=== PATIENT | male | born 1990 | race Caucasian/White ===

== ENCOUNTER → 2018-07-17 | Outpatient (CLI) | payer OTHER ==
[~2018-07-17] MED LIST: HOLD METFORMIN - RECEIVED CONTRAST 20 ML VIAL IV SCH; IOHEXOL 350 MG/ML 100 ML (OMNIPAQUE 350) VIAL IV ONE; NS 100 ML (IVPB) BAG IV ONE
--- NOTE | 2018-07-17 18:42 | Diagnostic Imaging Report ---
PROCEDURE: CT neck soft tissue with contrast. TECHNIQUE: Multiple contiguous axial images were obtained through the neck after the administration of contrast. Auto Exposure Controls were utilized during the CT exam to meet ALARA standards for radiation dose reduction. INDICATION: Left-sided neck pain, difficulty swallowing, pain at the posterior tongue. The nasopharynx, oropharynx, and hypopharynx are unremarkable. The larynx and pharyngeal trachea are patent and unremarkable. No cervical lymphadenopathy. The parotid and submandibular glands as well as the thyroid are unremarkable. The prevertebral and retropharyngeal spaces are unremarkable. No mass or mass effect at the level of the tongue base. Sublingual space appeared unremarkable. IMPRESSION: Unremarkable soft tissue neck CT. Dictated by: Dictated on workstation # [id number]
== END ==
LOC: RAD 17:29
PROVIDERS: ATTEND Otolaryngology Otolaryngology/Facial Plastic Surgery
DX: M54.2 Cervicalgia (principal); R13.10 Dysphagia, unspecified
CPT/HCPCS: 70491

== ENCOUNTER 2019-09-10 10:21 | Observation (INO) | payer OTHER ==
[2019-09-10 13:30] VITALS: BP 143/70
[2019-09-10] MEDS ORDERED: PATIENT MAY USE OWN MEDS, ALL PO SCH (14:30)
[2019-09-10] MEDS ORDERED: ANTACID SUSP 30 ML UDC (MYLANTA) PO PRN (14:30)
[2019-09-10] MEDS ORDERED: ONDANSETRON 4 MG/2 ML (SDV) Z0FRAN IV PRN (14:30)
[2019-09-10] MEDS ORDERED: diphenhydrAMINE 25 MG TAB (BENADRYL) PO PRN (14:30)
[2019-09-10] MEDS ORDERED: polyethylene glycoL POWDER 17 GM (MIRALAX) PACK PO PRN (14:30)
[2019-09-10] MEDS ORDERED: ONDANSETRON 4 MG (ZOFRAN) ORAL DISSOLVE TAB PO PRN (14:30)
[2019-09-10] MEDS ORDERED: BISACODYL 10 MG SUPP (DULCOLAX) PR PRN (14:30)
[2019-09-10] MEDS ORDERED: MELATONIN 3 MG TABLET PO PRN (14:30)
--- OUTSIDE RECORDS SUMMARY | 2019-09-10 14:36 | XMS REPORT ---
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 Plan of Treatment Not available. Medications Active Name Start Date Estimated Completion Date SIG Co mments Levaquin 500 mg oral tablet 09/06/2019 09/16/2019 take 1 tablet (500 mg) by oral route once daily for 10 days Problem List Not available. Vital Signs Date Time BP-Sys(mm[Hg] BP-Patricia(mm[Hg]) HR(bpm) RR(rpm) Temp WT HT HC BMI BSA BMI Percentile O2 Sat(%) 09/06/2019 12:26:00 PM 130 mm[Hg] 80 mm[Hg] 62 {beats}/min 17 rpm 98.8 F 152.25 lbs 69 in 22.4832 kg/m2 1.8336 m2 99 % Social History Name Description Comments Chewing Tobacco History of Procedures Not available. Results Summary Not available. History Of Immunizations Not available. History of Past Illness Name Date of Onset Comments Epididymitis Sep 06 2019 12:31PM Left testicular pain Sep 06 2019 12:31PM Payers Insurance Name Company Name Plan Name Plan Number Policy Number Michael cy Group Number Start Date Cigna Cigna [id number] N/A History of Encounters Visit Date Visit Type Provider 09/06/2019 Office visit Shannen ARRIOLA RN
--- OUTSIDE RECORDS SUMMARY | 2019-09-10 14:37 | XMS REPORT | Continuity of Care Document ---
Author Organization Unknown Address Unknown Phone Unavailable Allergies Active Description Code Type Severity Reaction Onset Reported/Identified Relationship to Patient Clinical Status Yes No Allergy Information Available [id number] Drug Allergy Unknown N/A 019 Medications There is no data. Problems Date Dx Coded Attending Type Code Diagnosis Diagnosed By 07/29/2018 ZACK HERNÁNDEZ, MERCED Acosta Ot M54 .2 CERVICALGIA 07/29/2018 MERCED DIXON MD Ot R13.10 DYSPHAGIA, UNSPECIFIED Procedures There is no data. Results Test Result Range Fecal Leukocyte - 10/23/18 15:48 Fecal Leukocyte Negative Negative C. difficile Specimen Status Comment - 0 10/23/18 15:48 C. difficile Specimen Status Comment Specime n is not acceptable for testing. Stool must be either liquid or semi-solid for testing to be performed. Stool Culture - 10/23/18 15:48 CAMPYLOBACTER CULTURE FINAL REPORT E COLI SHIGA TOXIN EIA NEGATIVE NEGATIV E RESULT 1 NO SALMONELLA OR SHIGELLA RECOVERED. Salmonella/Shigella Screen FINAL REPORT Result 1 NO CAMPYLOBACTER SPECIES ISOLATED. COVID19 - 07/02/19 14:39 COVID19 NEGATIVE test performed at [facility] Chlamydia/GC Amplification - 09/06/19 14 :49 Chlamydia trachomatis, JEFF Negative Neg ative Neisseria gonorrhoeae, JEFF Negative Neg ative Urinalysis - 09/06/19 14:49 Icotest N/A Negative Urine Volume Urine Volume Sufficient (10mL) Urine-Appearance Clear Clear Urine-Bilirubin Negative Negative Urine-Blood Negative Negative Urine-Color Yellow Colorless-Lt. [place] ow Urine-Glucose Negative Negative Urine-Ketones Negative Negative Urine-Leukocytes Negative Negative Urine-Nitrite Negative Negative Urine-pH 7.0 5-8.5 Urine-Protein Negative Negative Urine-Specific [place] 1.025 1.000-1 .030 Urine-WBC Nothing Seen on Microscopic Urobilinogen 0.2 E.U./dL 0.2-1.0 Encounters ACCT No. Visit Date/Time Discharge Status Pt. Type Provider Facility Loc./Unit Complaint [id number] 09/06/2019 12:54:42 09/06/2019 23:59: 59 CLS Outpatient Shannen Spann [id number] 07/17/2018 17:29:00 019 23:59:59 CLS Outpatient ZACK HERNÁNDEZ, MERCED Acosta [facility] RAD LEFT POSTERIOR TONGUE P AIN/NECK [id number] 09/10/2019 13:25:[address] Inpatient DEMETRIO HERNÁNDEZ, KAMALA Simms [facility] CSD CARDIAC MONITORING [id number] 09/09/2019 21:07:00 Document Registration [id number] 09/06/2019 14:43:00 09/06/2019 23:59 :00 DIS Outpatient Corky Grant [id number] 09/06/2019 14:20:00 09/06/2019 23:59 :00 DIS Outpatient Corky Grant [id number] 07/02/2019 14:20:00 07/02/2019 23:59 :00 DIS Outpatient Isael Bower [id number] 05/14/2019 00:00:00 05/14/2019 23:59 :00 DIS Outpatient PILO SIMMONS [id number] 05/13/2019 10:01:00 05/13/2019 23:59 :00 DIS Outpatient PILO SIMMONS [id number] 05/12/2019 12:10:00 05/12/2019 23:59 :00 DIS Outpatient Isael oBwer [id number] 10/25/2018 15:15:00 10/25/2018 23:59: 00 DIS Outpatient Isael Bower [id number] 10/23/2018 15:45:00 10/23/2018 23:59: 00 DIS Outpatient Isael Bower [id number] 10/23/2018 15:07:00 10/23/2018 23:59: 00 DIS Outpatient Isael Bower [id number] 12/09/2017 16:24:00 12/09/2017 23:59: 00 DIS Outpatient Corky Grant
[2019-09-10] MEDS ORDERED: ACETAMINOPHEN 325 MG TABLET ONE (14:53)
[2019-09-10] MEDS: ACETAMINOPHEN 325 MG TABLET PO PRN ×2 (14:59→21:44)
[2019-09-10 15:00] VITALS: BP 134/66
[2019-09-10 15:59] VITALS: BP 118/63
[2019-09-10] MEDS: NS IV 1000 ML 1,000 ML IV SCH (17:13)
--- NOTE | 2019-09-10 19:35 | History & Physical-Hospitalist ---
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 He reports that he was working outside on a bucket truck with exposed wires when he accidentally came into contact with a live wire. The point of contact was his left arm and the exit point was his left leg. He reports some muscle aches when he moves, but otherwise no pain. He reports a headache. He denies chest pain and palpitations. He denies fevers, chills, dyspnea, abdominal pain, nausea, and vomiting. He has no other complaints or concerns. Source: patient Exam Limitations: no limitations Date Seen 09/10/19 Time Seen by a Provider: 16:10 Attending Physician Kamala Atkinson MD PCP No,Local Physician Referring Physician Date of Admission Sep 10, 2019 at 13:25 Home Medications & Allergies Home Medications Reviewed patient Home Medication Reconciliation performed by pharmacy medication reconciliations air analysis engineering technician and/or nursing. Patients Allergies have been reviewed. Allergies Allergies Coded Allergies Penicillins (Verified Allergy, Unknown, 09/10/19) Past Ianqfja-Ycwipd-Aozhcv Hx Past Med/Social Hx: Reviewed Nursing Past Med/Soc Hx Review of Systems Constitutional: no symptoms reported EENTM: no symptoms reported Respiratory: no symptoms reported Cardiovascular: no symptoms reported Gastrointestinal: no symptoms reported Genitourinary: no symptoms reported Musculoskeletal: muscle pain Skin: no symptoms reported Psychiatric/Neurological: No Symptoms Reported Physical Exam Physical Exam Vital Signs Vital Signs - First Documented 09/10/19 13:30 Temp 37.2 Pulse 63 Resp 18 B/P (MAP) 143/70 (94) Pulse Ox 99 O2 Delivery Room Air Capillary Refill : Height, Weight, BMI Height: '" Weight: lbs. oz. kg; BMI Method: General Appearance: No Apparent Distress, WD/WN HEENT: PERRL/EOMI, Pharynx Normal Neck: Normal Inspection, Supple Respiratory: Lungs Clear, Normal Breath Sounds, No Respiratory Distress Cardiovascular: Regular Rate, Rhythm, No Edema, No Murmur Gastrointestinal: Normal Bowel Sounds, Non Tender, Soft Extremity: Normal Inspection, Non Tender, No Pedal Edema Neurologic/Psychiatric: Alert, Oriented x3, No Motor/Sensory Deficits, Depressed Affect Skin: Normal Color, Warm/Dry, Other (small wound lateral left leg) Results Results/Procedures Labs Patient resulted labs reviewed. Assessment/Plan Admission Diagnosis Electrocution Admission Status: Observation Assessment and Plan Electrocution -Initial EKG normal -Labs normal -Monitor on telemetry -Repeat LFTs and CK tomorrow morning -IV fluids DVT prophylaxis: ambulation Diagnosis/Problems Diagnosis/Problems (1) Electrocution Status: Acute Clinical Quality Measures DVT/VTE Risk/Contraindication: RFS Level Per Nursing on Admit: 1=Low/No VTE PPX KAMALA ATKINSON MD Sep 10, 2019 19:35
[2019-09-10 19:38] VITALS: BP 121/84
[2019-09-11] VITALS: BP 119/70
[2019-09-11] MEDS: NS IV 1000 ML 1,000 ML IV SCH ×2 (02:39→06:37)
[2019-09-11 04:00] VITALS: BP 122/70
--- NOTE | 2019-09-11 04:00 | NUR ---
DISCUSSED PATIENT'S HEART RATE WITH HIM. NOTED THAT DURING SLEEP IT DROPS INTO THE 40'S. PATIENT STATED THAT IT IS TYPICAL FOR HIM TO DROP DURING REST INTO THE 40'S AND THAT HE HAS "HAD A LOWER HEART RATE SINCE HE'S BEEN RUNNING MORE LATELY". PATIENT DENIES DIZZINESS, FEELING LIKE HE IS GOING TO FAINT, OR ANY OTHER SYMPTOMS AT THIS TIME. WHEN PATIENT IS AWAKE HEART RATE QUICKLY INCREASES TO MID-UPPER 50'S. WILL CONTINUE TO MONITOR.
[2019-09-11 04:06] LABS: BASOPHILS % (AUTO) 1 % (0-10); EOSINOPHILS # (AUTO) 0.2 10^3/uL (0.0-0.3); EOSINOPHILS % (AUTO) 4 % (0-10); HEMATOCRIT 39 % (40-54); HEMOGLOBIN 13.2 G/DL (13.3-17.7); LYMPHOCYTES # (AUTO) 2.3 X 10^3 (1.0-4.0); LYMPHOCYTES % (AUTO) 35 % (12-44); MEAN CORPUSCULAR HEMOGLOBIN 30 PG (25-34); MEAN CORPUSCULAR HGB CONC 34 G/DL (32-36); MEAN CORPUSCULAR VOLUME 89 FL (80-99); MONOCYTES # (AUTO) 0.5 X 10^3 (0.0-1.0); MONOCYTES % (AUTO) 7 % (0-12); NEUTROPHILS # (AUTO) 3.6 X 10^3 (1.8-7.8); NEUTROPHILS % (AUTO) 54 % (42-75); PLATELET COUNT 208 10^3/uL (130-400); RED CELL DISTRIBUTION WIDTH 12.4 % (10.0-14.5); WHITE BLOOD COUNT 6.7 10^3/uL (4.3-11.0)
[2019-09-11 04:29] LABS: ALANINE AMINOTRANSFERASE 19 U/L (0-55); ALBUMIN 3.9 GM/DL (3.2-4.5); ALKALINE PHOSPHATASE 37 U/L (40-136); BILIRUBIN,TOTAL 0.5 MG/DL (0.1-1.0); BUN/CREATININE RATIO 17; CALCIUM 8.8 MG/DL (8.5-10.1); CARBON DIOXIDE 22 MMOL/L (21-32); CHLORIDE 110 MMOL/L (98-107); CREATINE KINASE 130 U/L (30-200); CREATININE SERUM 0.81 MG/DL (0.60-1.30); GFR ESTIMATED > 60; GLUCOSE 99 MG/DL (70-105); POTASSIUM 4.2 MMOL/L (3.6-5.0); SODIUM 141 MMOL/L (135-145); TOTAL PROTEIN 5.8 GM/DL (6.4-8.2)
[2019-09-11 07:39] VITALS: BP 142/87
[2019-09-11] MEDS ORDERED: LEVO500T80 PO (10:45)
[2019-09-11] MEDS ORDERED: ALPR0.25 PO (10:53)
--- NOTE | 2019-09-11 10:53 | NUR ---
SPOKE WITH THE PT AND WENT THRU THE EXT MED HISTORY TO COMPLETE THE MED REC PT SAYS THE ONLY THING HE IS TAKING IS LEVAQUIN AND DENIES ANY OTC MEDS I UPDATED THE PATIENTS PREFERRED PHARMACY TO [facility] IN [place] DUE TO THE PT WANTING TO USE THE DRIVE THRU ON THE WAY OUT OF [facility]
[2019-09-11 11:41] VITALS: BP 142/87
--- NOTE | 2019-09-11 11:43 | NUR ---
PT EDUCATED ON DISCHARGE INSTRUCTIONS AND MEDICATIONS. PT STATED UNDERSTANDING.
--- NOTE | 2019-09-11 13:23 | Discharge Summary ---
Discharge Summary Hospital Course Was the Problem List Reviewed?: Yes Problems/Dx: (1) Electrocution Status: Acute Hospital Course Date of Admission: Sep 10, 2019 at 13:25 Admission Diagnosis : electrocution Family Physician/Provider: No,Local Physician Date of Discharge: 09/11/19 Discharge Diagnosis: electrocution Hospital Course: Dipak Hill is a 28-year-old male who presented after being electrocuted. 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 His initial lab workup was normal. His EKG was also unremarkable. He was monitored on telemetry and had no arrhythmias. His repeat lab work remained normal. He was discharged in stable condition. He should follow-up with his primary care physician in a week or two. Labs and Pending Lab Test: Laboratory Tests 09/11/19 03:55: White Blood Count 6.7, Red Blood Count 4.43, Hemoglobin 13.2L, Hematocrit 39L, Mean Corpuscular Volume 89, Mean Corpuscular Hemoglobin 30, Mean Corpuscular Hemoglobin Concent 34, Red Cell Distribution Width 12.4, Platelet Count 208, Mean Platelet Volume 10.0, Neutrophils (%) (Auto) 54, Lymphocytes (%) (Auto) 35, Monocytes (%) (Auto) 7, Eosinophils (%) (Auto) 4, Basophils (%) (Auto) 1, Neutrophils # (Auto) 3.6, Lymphocytes # (Auto) 2.3, Monocytes # (Auto) 0.5, Eosinophils # (Auto) 0.2, Basophils # (Auto) 0.0, Sodium Level 141, Potassium Level 4.2, Chloride Level 110H, Carbon Dioxide Level 22, Anion Gap 9, Blood Urea Nitrogen 14, Creatinine 0.81, Estimat Glomerular Filtration Rate > 60, BUN/Creatinine Ratio 17, Glucose Level 99, Calcium Level 8.8, Corrected Calcium 8.9, Total Bilirubin 0.5, Aspartate Amino Transf (AST/SGOT) 21, Alanine Aminotransferase (ALT/SGPT) 19, Alkaline Phosphatase 37L, Total Creatine Kinase 130, Total Protein 5.8L, Albumin 3.9 Home Meds Active Xanax (Alprazolam) 0.25 Mg Tablet 0.25 Mg PO TID PRN 7 Days Assessment/Pt Instructions Follow up with your PCP. Return with worsening pain or palpitations. Discharge Planning: <30 minutes discharge planning Discharge Instructions Discharge Diet: No Restrictions Activity as Tolerated: Yes Discharge Physical Examination Vital Signs Vital Signs Date Time Temp Pulse Resp B/P (MAP) Pulse Ox O2 Delivery O2 Flow Rate FiO2 09/11/19 11:41 36.4 54 17 142/87 99 Room Air General Appearance: No Apparent Distress, WD/WN HEENT: PERRL/EOMI, Pharynx Normal Respiratory: Lungs Clear, Normal Breath Sounds, No Respiratory Distress Cardiovascular: Regular Rate, Rhythm, No Edema, No Murmur Gastrointestinal: Normal Bowel Sounds, Non Tender, Soft Extremity: Non Tender, No Pedal Edema, Other (left lateral calf wound) Skin: Normal Color, Warm/Dry Neurologic/Psychiatric: Alert, Oriented x3, No Motor/Sensory Deficits, Normal Mood/Affect Allergies: Coded Allergies: Penicillins (Verified Allergy, Unknown, 09/10/19) Copy Copies To 1: VINCENT CUEVAS DO Discharge Summary Date of Admission Sep 10, 2019 at 13:25 Date of Discharge Sep 11, 2019 at 11:58 Discharge Date: Sep 11, 2019 Discharge Time: 11:58 Admission Diagnosis Electrocution Discharge Diagnosis Electrocution (1) Electrocution Status: Acute Clinical Quality Measures DVT/VTE Risk/Contraindication: RFS Level Per Nursing on Admit: 1=Low/No VTE PPX KAMALA ATKINSON MD Sep 11, 2019 13:23
== END 2019-09-11 11:41 | disposition home or self-care (01) ==
LOC: CSD 13:20 → UNDOADMOB 13:25 → CSD 13:25 → UNDODISOB 09-11 11:58
PROVIDERS: ADMIT Internal Medicine; ATTEND Internal Medicine
DX: T75.4XXA Electrocution, initial encounter (principal); Z88.0 Allergy status to penicillin
CPT/HCPCS: 80053; 82550; 85025; 93005; G0378; 36415